=== PATIENT | female | born 1990 | race Two or more races ===

== ENCOUNTER 2022-08-10 10:02 | Emergency (ER) | payer SELFPAY ==
[2022-08-10] MEDS ORDERED: Acetaminophen 500 MG Tab PO ONE (10:40)
[2022-08-10 11:38] LABS: CARBON DIOXIDE,CO2 21.7 mmol/L (21.0-32.0); POTASSIUM,K 3.9 mmol/L (3.5-5.1)
== END 2022-08-10 14:04 | disposition home or self-care (01) ==
LOC: MW.ED 10:02
DX: O23.40 Unspecified infection of urinary tract in pregnancy, unspecified trimester (principal); E86.0 Dehydration; R10.30 Lower abdominal pain, unspecified; I25.2 Old myocardial infarction; Z3A.00 Weeks of gestation of pregnancy not specified; Z88.0 Allergy status to penicillin; Z86.16 Personal history of COVID-19
CPT/HCPCS: 36415; 76770; 76801; 80053; 81001; 84702; 84703; 85025; 86900; 86901; 87086; 87088; 87186; 99284; A9270

== ENCOUNTER 2022-09-04 11:13 | Emergency (ER) | payer MEDICAID ==
[2022-09-04 12:44] LABS: CARBON DIOXIDE,CO2 23.1 mmol/L (21.0-32.0); POTASSIUM,K 4.1 mmol/L (3.5-5.1)
[2022-09-04] MEDS ORDERED: Sodium Chloride 0.9% 1,000 ML IV ONE (12:58)
== END 2022-09-04 14:51 | disposition home or self-care (01) ==
LOC: MW.ED 11:13
DX: O20.9 Hemorrhage in early pregnancy, unspecified (principal); Z3A.00 Weeks of gestation of pregnancy not specified
CPT/HCPCS: 36415; 76801; 80053; 81003; 84702; 85025; 86900; 86901; 96360; 99284; J7030